=== PATIENT | male | born 1975 | race Caucasian/White ===

== ENCOUNTER 2017-07-28 13:37 | Emergency (ER) | payer BC ==
[2017-07-28 14:34] VITALS: BP 140/74
--- NOTE | 2017-07-28 15:21 | UC ---
Skin Complaint HPI - HPI Summary HPI Summary: Had a little cyst, "ingrown hair", on saturday, popped it getting some pus out. Today more swollen red, tender. H/O MRSA a few years ago. - History of Current Complaint Chief Complaint: UCSkin Time Seen by Provider: 07/28/17 15:07 Stated Complaint: LEFT KNEE SKIN COMPLAINT Hx Obtained From: Patient Onset/Duration: Sudden Onset, Lasting Days - 2, Worse Since Skin Exposure Onset/Duration: Days Ago - 2 Onset Severity: Mild Current Severity: Moderate Location: Discrete - just proximal to medial left knee Character: Swelling, Redness, Painful Aggravating Factor(s): Touch Alleviating Factor(s): Nothing Associated Signs & Symptoms: Negative: Diaphoresis, Fever, Chills - Allergy/Home Medications Allergies/Adverse Reactions: Allergies Allergy/AdvReac Type Severity Reaction Status Date / Time No Known Allergies Allergy Verified 07/28/17 14:34 Review of Systems Skin: Other - infection left leg/ knee Is Patient Immunocompromised?: No All Other Systems Reviewed And Are Negative: Yes PMH/Surg Hx/FS Hx/Imm Hx Previously Healthy: Yes - Surgical History Surgical History: None - Family History Known Family History: Positive: Diabetes Negative: Cardiac Disease, Hypertension - Social History Occupation: Employed Full-time Lives: With Family Alcohol Use: None Substance Use Type: None Smoking Status (MU): Former Smoker When Did the Patient Quit Smoking/Using Tobacco: 12 YRS AGO - Immunization History Most Recent Influenza Vaccination: no Most Recent Tetanus Shot: 2011 Physical Exam Triage Information Reviewed: Yes Appearance: Well-Nourished, Ill-Appearing, Pain Distress - mild Vital Signs: Initial Vital Signs Temp 98.5 F 07/28/17 14:26 Pulse 83 07/28/17 14:26 Resp 17 07/28/17 14:26 BP 140/74 07/28/17 14:26 Pulse Ox 98 07/28/17 14:26 Vital Signs Reviewed: Yes Eyes: Positive: Conjunctiva Clear Neck exam: Normal Respiratory Exam: Normal Cardiovascular Exam: Normal Musculoskeletal: Positive: ROM Limited @ - left knee Neurological Exam: Normal Psychological Exam: Normal Skin: Positive: Other - Redness over the left knee. Course/Dx - Differential Diagnoses - Skin Complaint Differential Diagnoses: Abscess, Cellulitis, MRSA - Diagnoses Provider Diagnoses: Cellulitis left leg Discharge - Discharge Plan Condition: Stable Disposition: HOME Prescriptions: Sulfamethox/Trimethoprim DS* [Bactrim DS 800/160 TAB*] 1 tab PO BID #20 tab Patient Education Materials: Cellulitis (ED), Sulfamethoxazole/Trimethoprim ( By mouth), Ceftriaxone (By injection) Referrals: Cortez Schneider MD [Primary Care Provider] - Additional Instructions: If you get worsening knee pain with sweats and chills, go to the ER. Images Front/Back of Body, Lg (Gulf): 1 - Erythema 10x12 cm with induration. Central cyst opening with no purulent discharge.
[2017-07-28] MEDS ORDERED: cefTRIAXone VIAL(*) 1,000 MG VIAL IM ONE (15:22)
[2017-07-28] MEDS ORDERED: Lidocaine 1% MPF* 2 ML VIAL ONE (15:27)
== END 2017-07-28 15:53 | disposition home or self-care (01) ==
LOC: UCCORT 13:37
DX: L03.116 Cellulitis of left lower limb (principal); Z86.14 Personal history of Methicillin resistant Staphylococcus aureus infection; Z87.891 Personal history of nicotine dependence
CPT/HCPCS: 96372; 99212; G0463; J0696

== ENCOUNTER 2018-05-20 16:42 | Emergency (ER) | payer BC ==
[2018-05-20 16:53] VITALS: BP 151/96
[2018-05-20] MEDS ORDERED: Ibuprofen TAB* 400 MG PO ONE (17:02)
[2018-05-20] MEDS ORDERED: Lidocaine 2% W/EPI 1:100,000* 20 ML MDV INJ ONE (17:02)
[2018-05-20] MEDS ORDERED: Clindamycin CAP* 150 MG PO ONE (17:02)
--- NOTE | 2018-05-20 17:09 | UC ---
Skin Complaint HPI - HPI Summary HPI Summary: 42-year-old male with history of MRSA presents with one-week history of worsening right axillary boil. It is gotten more tender over this time and also associated with adjacent rash. He has not had any fever, shakes chills or nausea. He has required incision and drainage in the past. He reports that [place] was [place] the [place] which may have exacerbated these changes. - History of Current Complaint Chief Complaint: UCSkin Time Seen by Provider: 05/20/18 16:55 Stated Complaint: INFECTION IN AXILLA Hx Obtained From: Patient Pain Intensity: 3 - Allergy/Home Medications Allergies/Adverse Reactions: Allergies Allergy/AdvReac Type Severity Reaction Status Date / Time No Known Allergies Allergy Verified 05/20/18 16:54 Review of Systems Constitutional: Negative Skin: Rash, Other - Boil Respiratory: Negative Cardiovascular: Negative Gastrointestinal: Negative All Other Systems Reviewed And Are Negative: Yes PMH/Surg Hx/FS Hx/Imm Hx - Additional Past Medical History Additional PMH: MRSA abscess Previously Healthy: Yes - Surgical History Surgical History: None - Family History Known Family History: Positive: Diabetes Negative: Cardiac Disease, Hypertension - Social History Alcohol Use: None Substance Use Type: None Smoking Status (MU): Former Smoker When Did the Patient Quit Smoking/Using Tobacco: 12 YRS AGO - Immunization History Most Recent Influenza Vaccination: no Most Recent Tetanus Shot: 2011 Physical Exam Triage Information Reviewed: Yes Appearance: Well-Appearing, No Pain Distress, Well-Nourished Vital Signs: Initial Vital Signs Temp 99.5 F 05/20/18 16:49 Pulse 73 05/20/18 16:49 Resp 16 05/20/18 16:49 BP 151/96 05/20/18 16:49 Pulse Ox 95 05/20/18 16:49 Eye Exam: Normal ENT: Positive: Normal ENT inspection Neck: Positive: Supple Respiratory: Positive: Lungs clear Cardiovascular: Positive: RRR Musculoskeletal: Positive: Strength Intact, ROM Intact, No Edema Neurological Exam: Normal Skin: Positive: Other - Abscess with pointing and drainage in the right axilla with significant underlying induration or possible lymphadenopathy. Adjacent erythema down the medial aspect of the right arm. There is a speckled erythematous rash in the adjacent right axillary line Course/Dx - Course Course Of Treatment: Oral abx here. Likely MRSA. I&D here. Cont outpt abx. F/U wound check in 2d. - Differential Diagnoses - Skin Complaint Differential Diagnoses: Other - MRSA versus other bacterial abscess, bacteremia , lymphangitis, lymphadenopathy - Diagnoses Provider Diagnoses: Right axillary abscess. History of MRSA. Lymphangitis Procedures - Incision and Drainage Right Axilla Site: axilla Anesthesia: Local - 5cc Lidocaine 2% with epi Instrument(s): Scalpel - 11 bl Packing: Gauze, Other - culture obtained. Small amount of purulence out. Tolerated well. Min bleeding. Discharge - Sign-Out/Discharge Documenting (check all that apply): Patient Departure All imaging exams completed and their final reports reviewed: No Studies - Discharge Plan Condition: Improved Disposition: HOME Prescriptions: Clindamycin Cap(NF) [Clindamycin Cap 300 mg Cap(NF)] 300 mg PO Q6H #28 cap Patient Education Materials: Abscess (ED) Referrals: Cortez Schneider MD [Primary Care Provider] - Additional Instructions: Clean with soap and water twice daily. Warm compresses to the area. Return immediately or go to the ER with increasing redness in the arm, fever over 100.4 , vomiting, weakness, worse or other concerns. See your doctor or return to the urgent care for wound recheck in 2 days' time. - Billing Disposition and Condition Condition: IMPROVED Disposition: Home - Attestation Statements Document Initiated by Nitin: [place]
[2018-05-20] MEDS ORDERED: HYDROcodone/ACETAMIN 5-325 MG* 1 TAB PO ONE ×2 (17:13→17:38)
== END 2018-05-20 17:53 | disposition home or self-care (01) ==
LOC: UCCORT 16:42
DX: L02.411 Cutaneous abscess of right axilla (principal); I89.1 Lymphangitis; B95.61 Methicillin susceptible Staphylococcus aureus infection as the cause of diseases classified elsewhere; Z86.14 Personal history of Methicillin resistant Staphylococcus aureus infection; Z87.891 Personal history of nicotine dependence
CPT/HCPCS: 10060; 87070; 87077; 87186; 87205; 87640; 87641; 99212; A9270-GY; G0463